=== PATIENT | male | born 2000 | race Caucasian/White ===

== ENCOUNTER 2022-06-27 10:31 | Observation (INO) ==
[2022-06-27] MEDS ORDERED: SODIUM CHLORIDE 0.9% 1000ML 1,000 ML IV ONE (11:12)
[2022-06-27] MEDS ORDERED: ACETAMINOPHEN 1,000 MG/100 ML VIAL IV STA (11:12)
[2022-06-27 11:23] LABS: Basophils # (auto) 0.03 K/uL (0-0.2); Basophils % (auto) 0.2 %; Hematocrit (blood only) 45.6 % (40.1-51.0); Hemoglobin 16.7 g/dl (14.0-18.0); Immature Granulocytes # (auto) 0.06 K/uL (0.00-0.02); Immature Granulocytes % (auto) 0.4 %; Lymphocytes # (auto) 0.99 K/uL (1.2-3.4); Lymphocytes % (auto) 5.9 %; Mean Corpuscular Hemoglobin 31.2 pg (25.0-34.0); Mean Corpuscular Hgb Conc 36.6 g/dL (32.0-36.0); Mean Corpuscular Volume 85.1 fL (80.0-100.0); Mean Platelet Volume 9.8 fL (9.4-12.4); Monocytes # (auto) 1.54 K/uL (0.24-0.82); Monocytes % (auto) 9.2 %; Neutrophils # (auto) 14.08 K/uL (1.4-6.5); Neutrophils % (auto) 84.3 %; Platelet Count 177 K/uL (130-400); RDW Coefficient of Variation 11.3 % (11.5-14.5); RDW Standard Deviation 34.9 fL (36.4-46.3); Red Blood Count 5.36 M/uL (4.63-6.08)
--- NOTE | 2022-06-27 11:37 | Emergency Department Note ---
Impression & Plan Acute appendicitis with localized peritonitis ED Provider Note CHIEF COMPLAINT: Fever, sore throat, abdominal pain HISTORY OF PRESENT ILLNESS: This 22-year-old male patient presents to the [facility] department with complaints of fever, sore throat and abdominal pain. Patient states neck symptoms including the fever began 24 hours ago with abdominal pain beginning today under the ribs and around the umbilicus. Patient states when he pushes on his abdomen however the pain is more in the lower quadrants. He denies a cough, vomiting or diarrhea. He denies any known sick contacts. REVIEW OF SYSTEMS: A review of systems was performed with positives and pertinent negatives listed in the history of present illness. 10 systems were reviewed and are otherwise negative. ALLERGIES: see below MEDICATIONS: see below PMH: see below SOCIAL HISTORY: see below DDx: Viral syndrome, otitis, pharyngitis, pneumonia, influenza, appendicitis, mono, UTI, COVID, bacteremia, as well as other pathologies. PHYSICAL EXAM: Vital signs reviewed. Noted to be mildly tachycardic. Temperatu re repeated at the bedside orally and normal at 37.3. General: Well-appearing 22 yo male, in some discomfort HEENT: No scleral icterus, PERRLA, neck supple. Atraumatic. Cardiovascular: Regular but tachycardic. No extra sounds. Pulmonary: Clear to auscultation bilaterally, normal work of breathing. Abdomen: Soft, mild diffuse abdominal tenderness, no rebound or guarding, nondistended, positive bowel sounds. Musculoskeletal: Atraumatic, no peripheral edema. Neurologic: Patient awake alert and oriented x 3 Skin: Warm, dry, no rash EMERGENCY DEPARTMENT COURSE/MDM: This patient was evaluated and appeared to be in no significant distress. Patient had some mild diffuse abdominal tenderness on my initial exam. IV access was obtained and laboratory work was drawn. Patient is noted to have an elevated WBC. Strep PCR and monotest are negative. CT imaging of the abdomen pelvis was performed and reveals an acute appendicitis. Case was discussed with Dr. Montemayor general surgery who agreed to evaluate the patient for further management. The patient was informed of the findings and plan and agreed. MONITORING: An order for cardiac monitoring was placed and the patient is noted to be in a sinus tachycardia at 112 beats per minute. RADIOLOGY: see below DISPOSITION: Home Past Med/Surg History Medical History Acute appendicitis with localized peritonitis Social History Smoking Status: Never smoker Hx Alcohol Use: Yes Hx Substance Use: No Preferred Language: Yi Communication Ability: Effective Product Safety Lead Required: No Beliefs That Will Affect Care: None Current Living Situation: Other Other Information That Helps Us Care for You: No Feels Safe at Home: Yes Safety Concerns: Feels Safe At This Time Allergies Allergies Allergy/AdvReac Type Severity Reaction Status Date / Time No Known Allergies Allergy Unverified 06/27/22 14:59 Home Meds Home Medications Medication Instructions Recorded Confirmed calcium carbonate 300 mg (750 mg) 0 mg PO BID 06/27/22 06/27/22 chewable tablet (Tums) ibuprofen 200 mg tablet 200 mg PO Q6H PRN Pain 06/27/22 06/27/22 multivitamin 1 tab PO DAILY 06/27/22 06/27/22 Results & Data (ED) Vital Signs Vital Signs - 24 hr 06/27/22 10:43 06/27/22 10:32 06/27/22 11:11 Temperature 37.2 C Temperature Source Temporal Artery Scan Pulse Rate 123 H 107 H Pulse Rate [Apical] 101 H Pulse Rate from SpO2 Sensor Pulse Rhythm Regular Regular Pulse Rhythm [Apical] Regular Pulse Strength Normal Pulse Strength [Apical] Normal Respiratory Rate 20 19 19 Respiratory Effort / Characteristics Non-Labored Spontaneous Non-Labored Respiratory Depth Normal Normal Respiratory Pattern Regular Regular Blood Pressure 130/78 Blood Pressure [Left Arm] 123/67 Blood Pressure Mean 95 Blood Pressure Mean [Left Arm] 85 Blood Pressure Position Sitting Blood Pressure Position [Left Arm] Sitting Pulse Oximetry 97 97 97 Oxygen Delivery Method Room Air Room Air Room Air Sepsis Recent Fever Within 48 Hours No Sepsis New/Unexplained Change in Mental Status No Sepsis Action Taken by Nursing No Action Required 06/27/22 11:18 06/27/22 11:30 06/27/22 11:30 Temperature Temperature Source Pulse Rate 112 H 112 H Pulse Rate [Apical] Pulse Rate from SpO2 Sensor 110 H 107 H Pulse Rhythm Pulse Rhythm [Apical] Pulse Strength Pulse Strength [Apical] Respiratory Rate 28 H 18 Respiratory Effort / Characteristics Respiratory Depth Respiratory Pattern Blood Pressure 102/75 Blood Pressure [Left Arm] Blood Pressure Mean 84 Blood Pressure Mean [Left Arm] Blood Pressure Position Blood Pressure Position [Left Arm] Pulse Oximetry 98 97 Oxygen Delivery Method Sepsis Recent Fever Within 48 Hours Sepsis New/Unexplained Change in Mental Status Sepsis Action Taken by Nursing 06/27/22 12:00 06/27/22 12:00 06/27/22 13:18 Temperature Temperature Source Pulse Rate 94 H Pulse Rate [Apical] Pulse Rate from SpO2 Sensor 95 H Pulse Rhythm Pulse Rhythm [Apical] Pulse Strength Pulse Strength [Apical] Respiratory Rate 24 Respiratory Effort / Characteristics Respiratory Depth Respiratory Pattern Blood Pressure 116/70 117/74 Blood Pressure [Left Arm] Blood Pressure Mean 85 88 Blood Pressure Mean [Left Arm] Blood Pressure Position Blood Pressure Position [Left Arm] Pulse Oximetry 99 Oxygen Delivery Method Sepsis Recent Fever Within 48 Hours Sepsis New/Unexplained Change in Mental Status Sepsis Action Taken by Nursing 06/27/22 13:18 06/27/22 13:30 06/27/22 13:30 Temperature Temperature Source Pulse Rate 97 H Pulse Rate [Apical] Pulse Rate from SpO2 Sensor 97 H 97 H Pulse Rhythm Pulse Rhythm [Apical] Pulse Strength Pulse Strength [Apical] Respiratory Rate 24 Respiratory Effort / Characteristics Respiratory Depth Respiratory Pattern Blood Pressure 110/65 Blood Pressure [Left Arm] Blood Pressure Mean 80 Blood Pressure Mean [Left Arm] Blood Pressure Position Blood Pressure Position [Left Arm] Pulse Oximetry 99 99 Oxygen Delivery Method Sepsis Recent Fever Within 48 Hours Sepsis New/Unexplained Change in Mental Status Sepsis Action Taken by Nursing 06/27/22 14:00 06/27/22 14:00 06/27/22 14:30 Temperature Temperature Source Pulse Rate 105 H Pulse Rate [Apical] Pulse Rate from SpO2 Sensor 104 H Pulse Rhythm Pulse Rhythm [Apical] Pulse Strength Pulse Strength [Apical] Respiratory Rate 22 Respiratory Effort / Characteristics Respiratory Depth Respiratory Pattern Blood Pressure 117/69 110/73 Blood Pressure [Left Arm] Blood Pressure Mean 85 85 Blood Pressure Mean [Left Arm] Blood Pressure Position Blood Pressure Position [Left Arm] Pulse Oximetry 100 Oxygen Delivery Method Sepsis Recent Fever Within 48 Hours Sepsis New/Unexplained Change in Mental Status Sepsis Action Taken by Nursing 06/27/22 14:30 06/27/22 15:27 Temperature Temperature Source Pulse Rate 90 Pulse Rate [Apical] Pulse Rate from SpO2 Sensor 90 Pulse Rhythm Pulse Rhythm [Apical] Pulse Strength Pulse Strength [Apical] Respiratory Rate 17 Respiratory Effort / Characteristics Respiratory Depth Respiratory Pattern Blood Pressure Blood Pressure [Left Arm] Blood Pressure Mean Blood Pressure Mean [Left Arm] Blood Pressure Position Blood Pressure Position [Left Arm] Pulse Oximetry 97 Oxygen Delivery Method Room Air Sepsis Recent Fever Within 48 Hours Sepsis New/Unexplained Change in Mental Status Sepsis Action Taken by Care Home Medications Current Medication List: was personally reviewed by me Laboratory Data Attestation: I reviewed the patient's lab results. Result diagrams: 06/27/22 11:07 06/27/22 11:07 Lab Results 06/27/22 06/27/22 06/27/22 Range/Units 11:02 11:07 11:07 WBC 16.70 H (4.8-10.8) K/ul RBC 5.36 (4.63-6.08) M/uL Hgb 16.7 (14.0-18.0) g/dl Hct 45.6 (40.1-51.0) % MCV 85.1 (80.0-100.0) fL MCH 31.2 (25.0-34.0) pg MCHC 36.6 H (32.0-36.0) g/dL RDW Std Deviation 34.9 L (36.4-46.3) fL RDW Coeff of Tony 11.3 L (11.5-14.5) % Plt Count 177 (130-400) K/uL MPV 9.8 (9.4-12.4) fL Immature Gran % (Auto) 0.4 % Neut % (Auto) 84.3 % Lymph % (Auto) 5.9 % [place] % (Auto) 9.2 % Eos % (Auto) 0.0 % Baso % (Auto) 0.2 % Neut # (Auto) 14.08 H (1.4-6.5) K/uL Lymph # (Auto) 0.99 L (1.2-3.4) K/uL [place] # (Auto) 1.54 H (0.24-0.82) K/uL Eos # (Auto) 0.00 (0-0.50) K/uL Baso # (Auto) 0.03 (0-0.2) K/uL Immature Gran # (Auto) 0.06 H (0.00-0.02) K/uL Sodium 136 (136-145) mmol/L Potassium 4.1 (3.5-5.1) mmol/L Chloride 99 (98-107) mmol/L Carbon Dioxide 29 (21-32) mmol/L Anion Gap 8 (3-11) BUN 16 (6-23) mg/dl Creatinine 0.84 (0.6-1.4) mg/dl Est Cr Clr Drug Dosing 148.2 ml/min Est GFR ( Amer) 145.1 ml/min Est GFR (Non-Af Amer) 125.2 ml/min BUN/Creatinine Ratio 19.0 (10-20) Glucose 118 H (70-99(Fasting)) mg/dl Calcium 10.0 (8.5-10.1) mg/dl Total Bilirubin 0.6 (0.2-1.0) mg/dl AST 23 (13-39) U/L ALT 21 (7-52) U/L Alkaline Phosphatase 91 (34-104) U/L Total Protein 8.0 (6.0-8.3) gm/dl Albumin 4.7 (3.4-5.0) gm/dl Globulin 3.3 (2.5-4.0) gm/dl Albumin/Globulin Ratio 1.4 (0.9-2) Lipase 19 (11-82) U/L Urine Color Yellow Urine Appearance Clear (Clear) Urine pH 6.5 (4.5-7.5) Ur Specific [place] 1.010 (1.000-1.030) Urine Protein Negative (Negative) Urine Glucose (UA) Negative (Negative) Urine Ketones Negative (Negative) Urine Blood Negative (Negative) Urine Nitrite Negative (Negative) Urine Bilirubin Negative (Negative) Urine Urobilinogen Negative (Negative) Ur Leukocyte Esterase Negative (Negative) SARS-CoV-2 (PCR) (Negative) Monoscreen (Negative) Influenza Type A (PCR) (Neg) Influenza Type B (PCR) (Neg) RSV (RT-PCR) (Neg) Group A Strep (PCR) (NotDetected) 06/27/22 06/27/22 06/27/22 Range/Units 11:07 11:31 11:31 WBC (4.8-10.8) K/ul RBC (4.63-6.08) M/uL Hgb (14.0-18.0) g/dl Hct (40.1-51.0) % MCV (80.0-100.0) fL MCH (25.0-34.0) pg MCHC (32.0-36.0) g/dL RDW Std Deviation (36.4-46.3) fL RDW Coeff of Tony (11.5-14.5) % Plt Count (130-400) K/uL MPV (9.4-12.4) fL Immature Gran % (Auto) % Neut % (Auto) % Lymph % (Auto) % [place] % (Auto) % Eos % (Auto) % Baso % (Auto) % Neut # (Auto) (1.4-6.5) K/uL Lymph # (Auto) (1.2-3.4) K/uL [place] # (Auto) (0.24-0.82) K/uL Eos # (Auto) (0-0.50) K/uL Baso # (Auto) (0-0.2) K/uL Immature Gran # (Auto) (0.00-0.02) K/uL Sodium (136-145) mmol/L Potassium (3.5-5.1) mmol/L Chloride (98-107) mmol/L Carbon Dioxide (21-32) mmol/L Anion Gap (3-11) BUN (6-23) mg/dl Creatinine (0.6-1.4) mg/dl Est Cr Clr Drug Dosing ml/min Est GFR ( Amer) ml/min Est GFR (Non-Af Amer) ml/min BUN/Creatinine Ratio (10-20) Glucose (70-99(Fasting)) mg/dl Calcium (8.5-10.1) mg/dl Total Bilirubin (0.2-1.0) mg/dl AST (13-39) U/L ALT (7-52) U/L Alkaline Phosphatase (34-104) U/L Total Protein (6.0-8.3) gm/dl Albumin (3.4-5.0) gm/dl Globulin (2.5-4.0) gm/dl Albumin/Globulin Ratio (0.9-2) Lipase (11-82) U/L Urine Color Urine Appearance (Clear) Urine pH (4.5-7.5) Ur Specific [place] (1.000-1.030) Urine Protein (Negative) Urine Glucose (UA) (Negative) Urine Ketones (Negative) Urine Blood (Negative) Urine Nitrite (Negative) Urine Bilirubin (Negative) Urine Urobilinogen (Negative) Ur Leukocyte Esterase (Negative) SARS-CoV-2 (PCR) NEGATIVE (Negative) Monoscreen Negative (Negative) Influenza Type A (PCR) Negative (Neg) Influenza Type B (PCR) Negative (Neg) RSV (RT-PCR) Negative (Neg) Group A Strep (PCR) NOT DETECTED (NotDetected) Administered Medications Sodium Chloride (Nss 1000ml) 1,000 mls @ 100 mls/hr IV .Q10H KAMALA Stop: 07/27/22 12:59 Last Admin: 06/27/22 18:25 Dose: 100 mls/hr Documented By: Infusion: 06/27/22 18:25 Dose: 100 mls/hr Documented By: Infusion: 06/27/22 13:37 Dose: 100 mls/hr Documented By: Admin: 06/27/22 13:28 Dose: 100 mls/hr Documented By: KAJAL Cefoxitin Sodium 2,000 mg/ (Dextrose) 60 mls @ 100 mls/hr IV Q6H KAMALA Stop: 07/07/22 18:29 Last Admin: 06/27/22 18:39 Dose: 100 mls/hr Documented By: MIRIAN Ondansetron HCl (Ondansetron Inj 2 Mg/Ml 2 Ml Vial) 4 mg IV Q6H PRN PRN Reason: Nausea And Vomiting Stop: 07/27/22 17:44 Last Admin: 06/27/22 18:25 Dose: 4 mg Documented By: MIRIAN Discontinued Medications Bupivacaine HCl/Epinephrine Bitart (Bupivacaine/Epinephrine 0.5% Mpf 1:200,000 30 Ml Vial) Confirm Administered Dose 30 ml .ROUTE .STK-MED ONE Stop: 06/27/22 16:08 Last Admin: 06/27/22 18:30 Dose: Not Given Documented By: MIRIAN Sodium Chloride (Nss 1000ml) 1,000 mls @ 999 mls/hr IV .Q1H1M ONE Stop: 06/27/22 12:12 Last Infusion: 06/27/22 13:44 Dose: 0 mls/hr Documented By: Admin: 06/27/22 11:33 Dose: 999 mls/hr Documented By: QGV Acetaminophen (Ofirmev) 1,000 mg in 100 mls @ 400 mls/hr IV NOW STA Stop: 06/27/22 11:26 Last Admin: 06/27/22 11:53 Dose: Not Given Documented By: KAJAL Ioversol (Optiray 350 100ml) 94 ml IV ONCE ONE Stop: 06/27/22 13:11 Last Admin: 06/27/22 13:10 Dose: 94 ml Documented By: KATE(2) Imaging Data Radiologist's Impression: Abdomen/Pelvis CT 06/27/22 11:[address] WITH IV CONTRAST CT DOSE: 346.02 mGy.cm HISTORY: Generalized abdominal pain. Fever. TECHNIQUE: Multiaxial CT images of the abdomen and pelvis were performed following the use of intravenous contrast. A dose lowering technique was utilized adhering to the principles of ALARA. COMPARISON STUDY: None. FINDINGS: The lung bases are clear. No pneumoperitoneum. No pneumatosis. No fractures within the visualized osseous structures. The spleen is is at the upper limits of normal measuring 12 cm in length. No hepatic or splenic masses. The gallbladder, pancreas, adrenal glands, and kidneys are unremarkable. No hydronephrosis. The main portal vein is patent. Normal caliber abdominal aorta. There is a left circumaortic renal vein. No lymphadenopathy identified. There is trace pelvic free fluid. The bladder is decompressed but appears unremarkable. Moderate well-formed stool seen throughout the colon. No dilated loops of bowel to suggest an obstruction. The appendix is not well visualized due to the lack of oral contrast but appears to be located within the right lower quadrant with the tip anterior to the sacrum. The appendix appears to be located on images 293 through 333. The appendix appears to be filled with fluid and mildly distended up to 9 mm. There is mild periappendiceal fat stranding. Therefore, these findings likely represent an acute appendicitis. No perforation or abscess identified at this time. IMPRESSION: The appendix is suboptimally assessed due to the lack of oral contrast but appears to be abnormal as described above. Therefore, these findings likely represent an acute appendicitis. Surgical consultation recommended. ACT 112: Negative or not required by law. Electronically signed by: Lucius Sparks M.D. 06/27/2022 1:23 PM Blood Pressure Blood Pressure Findings: Normal blood pressure Blood Pressure Disposition: did not require urgent referral Discharge Plan Visit Data Chief Complaint: Abdominal Pain Stated Complaint: ABD PAIN ED Provider: Kavya Guan Discharge Problem: Acute appendicitis with localized peritonitis Patient Disposition: Admitted As Inpatient Discharge Instructions Interventions: ED Discharge Assessment Last Done: 06/27/22 15:27 : Acute appendicitis with localized peritonitis Qualifiers: Appendicitis gangrene presence: unspecified whether gangrene present Appendicitis perforation presence: without perforation Appendicitis abscess presence: without abscess Qualified Code(s): K35.30 - Acute appendicitis with localized peritonitis, without perforation or gangrene
[2022-06-27 11:46] LABS: Albumin Globulin Ratio 1.4 (0.9-2); Albumin Level 4.7 gm/dl (3.4-5.0); Bilirubin,Total 0.6 mg/dl (0.2-1.0); Creatinine Clr Calc Pharmacy 148.2 ml/min; Est GFR (African American) 145.1 ml/min; Est GFR (Non-African American) 125.2 ml/min; Globulin 3.3 gm/dl (2.5-4.0); Potassium 4.1 mmol/L (3.5-5.1)
[2022-06-27 11:50] LABS: Appearance Urine Clear (Clear); Bilirubin Urine Negative (Negative); Blood Urine Negative (Negative); Color Urine Yellow; Glucose Urine UA Negative (Negative); Ketones Urine Negative (Negative); Leukocyte Esterase Urine Negative (Negative); Nitrite Urine Negative (Negative); Protein Urine Negative (Negative); Urobilinogen Urine Negative (Negative); pH Urine 6.5 (4.5-7.5)
[2022-06-27 12:51] LABS: Influenza A virus by PCR Negative (Neg); Influenza B virus by PCR Negative (Neg); RSV by PCR Negative (Neg); SARS CoV2 RNA(COVID-19) Ceph NEGATIVE (Negative)
[2022-06-27] MEDS ORDERED: OPTIRAY 350 100ml IV ONE (13:10)
--- NOTE | 2022-06-27 13:25 | CT Scan Report ---
ABDOMEN AND PELVIS CT WITH IV CONTRAST CT DOSE: 346.02 mGy.cm HISTORY: Generalized abdominal pain. Fever. TECHNIQUE: Multiaxial CT images of the abdomen and pelvis were performed following the use of intrave nous contrast. A dose lowering technique was utilized adhering to the principles of ALARA. COMPARISON STUDY: None. FINDINGS: The lung bases are clear. No pneumoperitoneum. No pneumatosis. No fractures within the visu alized osseous structures. The spleen is is at the upper limits of normal measuring 12 cm in length. No hepatic or splenic masses. The gallbladder, pancreas, adrenal glands, and kidneys are unremarkable . No hydronephrosis. The main portal vein is patent. Normal caliber abdominal aorta. There is a left circumaortic renal vein. No lymphadenopathy identified. There is trace pelvic free fluid. The bladder is decompressed but appears unremarkable. Moderate well-formed stool seen throughout the colon. No d ilated loops of bowel to suggest an obstruction. The appendix is not well visualized due to the lack of oral contrast but appears to be located within the right lower quadrant with the tip anterior to t he sacrum. The appendix appears to be located on images 293 through 333. The appendix appears to be f illed with fluid and mildly distended up to 9 mm. There is mild periappendiceal fat stranding. Theref ore, these findings likely represent an acute appendicitis. No perforation or abscess identified at t his time. IMPRESSION: The appendix is suboptimally assessed due to the lack of oral contrast but appears to be abnormal as described above. Therefore, these findings likely represent an acute appendicitis. Surgical consultat ion recommended. ACT 112: Negative or not required by law. Electronically signed by: Lucius Sparks M.D. 06/27/2022 1:23 PM
[2022-06-27] MEDS: SODIUM CHLORIDE 0.9% 1000ML 1,000 ML IV SCH ×2 (13:28→18:25)
--- NOTE | 2022-06-27 15:10 | Anesthesiology Consultation ---
Date of Service June 27, 2022 Assessment & Plan Chart Review Chart Review: Acceptable Risk for Surgery and Patient NOT seen in Pre Admission Testing Consults Requested none ASA [id number] Proposed Anesthesia Anesthesia Type: General History Surgery Operation Date: 06/27/22 16:00 Proposed Procedures p Laparoscopic Appendectomy - Maury Montemayor MD Height/Weight Height: 5 ft 11 in Weight: 84.3 kg Allergies Allergy/AdvReac Type Severity Reaction Status Date / Time No Known Allergies Allergy Unverified 06/27/22 14:59 Medications Home Medications Medication Instructions Recorded Confirmed Last Taken calcium carbonate 300 mg (750 mg) 0 mg PO BID 06/27/22 06/27/22 Unknown chewable tablet (Tums) ibuprofen 200 mg tablet 200 mg PO Q6H PRN Pain 06/27/22 06/27/22 Unknown multivitamin 1 tab PO DAILY 06/27/22 06/27/22 Unknown Active Medications Generic Name Dose Route Start Last Admin Trade Name Freq PRN Reason Stop Dose Admin Sodium Chloride 1,000 mls @ 100 mls/hr 06/27/22 13:00 06/27/22 13:37 Nss 1000ml IV 07/27/22 12:59 100 mls/hr .Q10H KAMALA Infusion Exercise / Class Metabolic Activity 1 > 8 Run/Swim/Ski/Tennis Past Anesthesia History No Hx of Anesthesia Complications and No Family Hx of Anesthesia Complications History of PONV No Hx of PONV and No Hx of Motion Sickness Social History Smoking Status: Never smoker Physical Exam Vital Signs Last Vital Signs Temp 37.2 C 06/27/22 10:43 Pulse 90 06/27/22 14:30 Resp 17 06/27/22 14:30 BP 110/73 06/27/22 14:30 Pulse Ox 97 06/27/22 14:30 O2 Del Method 06/27/22 11:11 Testing Laboratory Results 06/27/22 11:07 06/27/22 11:07 Urine Color Yellow 06/27/22 11:02 Urine Appearance Clear (Clear) 06/27/22 11:02 Urine pH 6.5 (4.5-7.5) 06/27/22 11:02 Ur Specific [place] 1.010 (1.000-1.030) 06/27/22 11:02 Urine Protein Negative (Negative) 06/27/22 11:02 Urine Glucose (UA) Negative (Negative) 06/27/22 11:02 Urine Ketones Negative (Negative) 06/27/22 11:02 Urine Nitrite Negative (Negative) 06/27/22 11:02 Ur Leukocyte Esterase Negative (Negative) 06/27/22 11:02
[2022-06-27] MEDS ORDERED: HYDROmorphone INJ 1 MG/ML SYRINGE IV PRN (15:47)
[2022-06-27] MEDS ORDERED: ONDANSETRON INJ 2 MG/ML 2 ML VIAL IV PRN ×2 (15:47→17:45)
[2022-06-27] MEDS ORDERED: NALOXONE HCL 0.4 MG/1 ML VIAL/CARP IV PRN (15:47)
[2022-06-27] MEDS ORDERED: fentaNYL citrate 100 MCG/2 ML VIAL IV PRN (15:47)
[2022-06-27] MEDS ORDERED: ePHEDrine sulfate 50 MG/ML AMP IV PRN (15:47)
[2022-06-27] MEDS ORDERED: PROMETHAZINE HCL 12.5 MG in SODIUM CHLORIDE 0.9% 50 ML IV PRN (15:47)
[2022-06-27] MEDS ORDERED: ATROPINE SULFATE 0.1 MG/ML 10ML SYR IV PRN (15:47)
[2022-06-27] MEDS ORDERED: FLUMAZENIL 0.1 MG/1 ML 10 ML VIAL IV PRN (15:47)
[2022-06-27] MEDS ORDERED: PROPOFOL IV EMULSION 10 MG/ML 20 ML VIAL IV ONE (15:50)
[2022-06-27] MEDS ORDERED: fentaNYL citrate 100 MCG/2 ML VIAL ONE (15:51)
[2022-06-27] MEDS ORDERED: MIDAZOLAM HCL 1 MG/ML 2ML VIAL ONE (15:52)
--- NOTE | 2022-06-27 15:55 | History & Physical Report ---
Date of Service June 27, 2022 Assessment & Plan (1) Acute appendicitis with localized peritonitis: Plan: IVF IV abx to OR for lap appendectomy Present on Admission?: Yes History of Present Illness Primary Care Provider: NO PCP This 22-year-old male patient presented to ED with complaints of fever, sore throat and abdominal pain. Patient states neck symptoms including the fever began 24 hours ago with abdominal pain beginning today under the ribs and around the umbilicus. Patient states when he pushes on his abdomen however the pain is more in the lower quadrants. He denies a cough, vomiting or diarrhea. He denies any known sick contacts. A CT scan shows acute appendicitis. Allergies Allergy/AdvReac Type Severity Reaction Status Date / Time No Known Allergies Allergy Unverified 06/27/22 14:59 Home Medications Medication Instructions Recorded Confirmed Type calcium carbonate 300 mg (750 mg) 0 mg PO BID 06/27/22 06/27/22 History chewable tablet (Tums) ibuprofen 200 mg tablet 200 mg PO Q6H PRN Pain 06/27/22 06/27/22 History multivitamin 1 tab PO DAILY 06/27/22 06/27/22 History Past Med/Surg History Medical History (Updated 06/27/22 @ 15:56 by Maury Montemayor MD) Acute appendicitis with localized peritonitis Social History Smoking Status: Never smoker Preferred Language: Georgian Feels Safe at Home: Yes Review of Systems + fever and + anorexia; no chills no problem reported no problem reported + cough; no dyspnea no chest pain + abdominal pain and + nausea; no vomiting no dysuria no rash and no lesions no localized weakness and no generalized weakness no behavioral changes Physical Exam Constitutional: WD/WN, vitals as above Eyes: PERRL, conjunctivae normal, anicteric sclerae ENMT: external ear and nose normal, oropharynx normal Neck: normal visual inspection Respiratory: normal respiratory effort, lungs clear to auscultation Cardiovascular: RRR, no murmur, no edema Gastrointestinal (Abdomen): Inspection/Auscultation: abdomen normal to inspection and normal bowel sounds; abdomen not distended Percussion/Palpation: + abdomen tender and abdomen soft; no guarding and abdomen not rigid Musculoskeletal: Head/Neck/Chest: normocephalic and head atraumatic Skin: no rashes, warm and dry Results & Data (MN) Vital Signs (Past 12 Hours) Vital Signs Temp Pulse Pulse Resp BP BP Pulse Ox 06/27/22 15:27 06/27/22 14:30 90 17 97 06/27/22 14:30 110/73 06/27/22 14:00 105 H 22 100 06/27/22 14:00 117/69 06/27/22 13:30 97 H 24 99 06/27/22 13:30 110/65 06/27/22 13:18 99 06/27/22 13:18 117/74 06/27/22 12:00 94 H 24 99 06/27/22 12:00 116/70 06/27/22 11:30 112 H 18 97 06/27/22 11:30 102/75 06/27/22 11:18 112 H 28 H 98 06/27/22 11:11 107 H 19 97 06/27/22 10:32 101 H 19 123/67 97 06/27/22 10:43 37.2 C 123 H 20 130/78 97 O2 Del Method 06/27/22 15:27 Room Air 06/27/22 14:30 06/27/22 14:30 06/27/22 14:00 06/27/22 14:00 06/27/22 13:30 06/27/22 13:30 06/27/22 13:18 06/27/22 13:18 06/27/22 12:00 06/27/22 12:00 06/27/22 11:30 06/27/22 11:30 06/27/22 11:18 06/27/22 11:11 Room Air 06/27/22 10:32 Room Air 06/27/22 10:43 Room Air Diagnostic Findings ABDOMEN AND PELVIS CT WITH IV CONTRAST CT DOSE: 346.02 mGy.cm HISTORY: Generalized abdominal pain. Fever. TECHNIQUE: Multiaxial CT images of the abdomen and pelvis were performed following the use of intravenous contrast. A dose lowering technique was utilized adhering to the principles of ALARA. COMPARISON STUDY: None. FINDINGS: The lung bases are clear. No pneumoperitoneum. No pneumatosis. No fractures within the visualized osseous structures. The spleen is is at the upper limits of normal measuring 12 cm in length. No hepatic or splenic masses. The gallbladder, pancreas, adrenal glands, and kidneys are unremarkable. No hydronephrosis. The main portal vein is patent. Normal caliber abdominal aorta. There is a left circumaortic renal vein. No lymphadenopathy identified. There is trace pelvic free fluid. The bladder is decompressed but appears unremarkable. Moderate well-formed stool seen throughout the colon. No dilated loops of bowel to suggest an obstruction. The appendix is not well visualized due to the lack of oral contrast but appears to be located within the right lower quadrant with the tip anterior to the sacrum. The appendix appears to be located on images 293 through 333. The appendix appears to be filled with fluid and mildly distended up to 9 mm. There is mild periappendiceal fat stranding. Therefore, these findings likely represent an acute appendicitis. No perforation or abscess identified at this time. IMPRESSION: The appendix is suboptimally assessed due to the lack of oral contrast but appears to be abnormal as described above. Therefore, these findings likely represent an acute appendicitis. Surgical consultation recommended.
[2022-06-27] MEDS ORDERED: BUPIVACAINE/EPINEPHRINE 0.5% MPF 1:200,000 30 ML VIAL ONE (16:07)
[2022-06-27] MEDS ORDERED: DEXAMETHASONE SOD INJ 4 MG/ML VIAL ONE (16:22)
[2022-06-27] MEDS ORDERED: CISATRACURIUM BESYLATE IV SOLN 2 MG/ML 10 ML VIAL IV ONE (16:22)
[2022-06-27] MEDS ORDERED: ONDANSETRON INJ 2 MG/ML 2 ML VIAL ONE (16:23)
[2022-06-27] MEDS ORDERED: NEOSTIGMINE METHYLSULFATE 1 MG/ML 10ML VIAL ONE (16:35)
[2022-06-27] MEDS ORDERED: GLYCOPYRROLATE 0.2 MG/ML VIAL ONE (16:35)
--- NOTE | 2022-06-27 16:48 | Post Operative Brief Note ---
Immediate Post Op Note v1 Date of Surgery June 27, 2022 Pre & Post Diagnosis Operation Date: 06/27/22 16:00 Pre-Op Diagnosis: acute appendicitis Post-Op Diagnosis: acute appendicitis I identified the patient and participated in the time-out.: Yes Procedure Operation Date: 06/27/22 16:00 Actual Procedures p Laparoscopic Appendectomy(Not Applicable) - Maury Montemayor MD Surgeon Maury Montemayor MD [employer] none Estimated Blood Loss 3 Findings Consistent with Post-Op Diagnosis
--- NOTE | 2022-06-27 17:30 | Anesthesiology Progress Note ---
Date of Service June 27, 2022 Anesthesia Post Procedure Vital Signs Vital Signs: Temp Pulse Pulse Resp BP BP BP 06/27/22 17:25 37.5 C 79 19 122/64 06/27/22 17:15 82 22 125/67 06/27/22 17:05 85 26 H 136/74 06/27/22 16:58 37.2 C 87 20 134/67 06/27/22 15:27 06/27/22 14:30 90 17 06/27/22 14:30 110/73 06/27/22 14:00 105 H 22 06/27/22 14:00 117/69 06/27/22 13:30 97 H 24 06/27/22 13:30 110/65 06/27/22 13:18 06/27/22 13:18 117/74 06/27/22 12:00 94 H 24 06/27/22 12:00 116/70 06/27/22 11:30 112 H 18 06/27/22 11:30 102/75 06/27/22 11:18 112 H 28 H 06/27/22 11:11 107 H 19 06/27/22 10:32 101 H 19 123/67 06/27/22 10:43 37.2 C 123 H 20 130/78 Pulse Ox O2 Del Method O2 Flow Rate 06/27/22 17:25 95 Room Air 06/27/22 17:15 94 Room Air 06/27/22 17:05 97 Room Air 06/27/22 16:58 100 Oxymask 2 06/27/22 15:27 Room Air 06/27/22 14:30 97 06/27/22 14:30 06/27/22 14:00 100 06/27/22 14:00 06/27/22 13:30 99 06/27/22 13:30 06/27/22 13:18 99 06/27/22 13:18 06/27/22 12:00 99 06/27/22 12:00 06/27/22 11:30 97 06/27/22 11:30 06/27/22 11:18 98 06/27/22 11:11 97 Room Air 06/27/22 10:32 97 Room Air 06/27/22 10:43 97 Room Air Pain Intensity Abdomen: Pain Intensity: 2 Transfer of Care Handoff Completed per policy Notes Mental Status: alert / awake / arousable Patient Amnestic to Procedure: Yes Nausea / Vomiting: adequately controlled Pain: adequately controlled Airway Patency, RR, SpO2: stable & adequate BP & HR: stable & adequate Hydration State: stable & adequate Anesthetic Complications: no major complications apparent
[2022-06-27] MEDS ORDERED: MoRPHine SULFATE 4 MG/ML 1 ML CARP\\VIAL IV PRN (17:45)
[2022-06-27] MEDS ORDERED: oxyCODONE/ACETAMINOPHEN 5mg/325mg TAB PO PRN ×2 (17:45)
[2022-06-27] MEDS ORDERED: MoRPHine SULFATE 2 MG/ML CARP IV PRN (17:45)
[2022-06-27] MEDS ORDERED: ACETAMINOPHEN 325 MG TAB PO PRN (17:45)
[2022-06-27] MEDS ORDERED: IBUPROFEN 600 MG TAB PO PRN (17:45)
[2022-06-27] MEDS: cefOXitin 2,000 MG in DEXTROSE 5% 50 ML IV SCH (18:39)
--- NOTE | 2022-06-27 20:26 | Operative Report (OR) ---
DATE OF SURGERY: 06/27/2022. PREOPERATIVE DIAGNOSIS: Acute appendicitis. POSTOPERATIVE DIAGNOSIS: Acute appendicitis. PROCEDURES PERFORMED: Laparoscopic appendectomy. SURGEON: Maury Montemayor MD COT ASSEMBLER: None. ANESTHESIA: General endotracheal with 0.5% Marcaine with epinephrine local. ESTIMATED BLOOD LOSS: 3 mL. DRAINS: None. COMPLICATIONS: None. SPECIMENS: Appendix to pathology. INDICATIONS: This is a 22-year-old male admitted through the ED with abdominal pain. He underwent a workup, which showed an acute appendicitis. We talked to him in detail and recommended laparoscopic appendectomy. We went over the possible open procedure, postoperative abscess, bleeding and wound p roblems. DESCRIPTION OF PROCEDURE: The patient was taken to the OR and underwent excellent general endotrache al anesthesia. His abdomen was prepped and draped in normal sterile fashion. Transverse supraumbili marshal incision was made. With tension on the abdominal wall, a Veress needle was inserted. Good pneum operitoneum was then achieved to 15 mmHg pressure. A visualized 11 port was then placed. Good diagn ostic lap was performed. Appendix could be seen inflamed and stuck to the right lower quadrant. A 5 suprapubic and a 5 right upper quadrant and a 12 left lower quadrant port were placed in normal fash ion. The patient was placed in head down and rolled to the left. His cecum was identified. This was gras ped with a [place] clamp. The appendix was teased free from the right lower quadrant and the tip was placed on tension. A Harmonic scalpel was then used to take down the mesoappendix with minimal blee ding. A ZAINAB stapler was used to transect the appendix at its base. A second fire was made to cover the small portion, which was left of the part of the appendix. Once the staple line was completed, t he appendix was removed through the left lower quadrant port. The abdomen was then irrigated out wit h 500 mL of saline. There was minimal bleeding. The staple line was intact with no bleeding. No ot her abnormalities were noted. Ports were removed. The pneumoperitoneum was decompressed. 0 Vicryl was used to close the fascial defect in the 11 and 12 ports. Interrupted Vicryl was used to close th e skin. Steri-Strips and benzoin were used to reinforce the incisions. Marcaine 0.5% with epinephri ne local was used to create a local field block. Sterile dressings were then applied. The patient t olerated the procedure without any complication and was sent to postoperative recovery for a period o f observation and will be sent to the floor for his care. Job ID: [id number]
[2022-06-28] MEDS: cefOXitin 2,000 MG in DEXTROSE 5% 50 ML IV SCH ×3 (00:11→11:56)
[2022-06-28] MEDS: SODIUM CHLORIDE 0.9% 1000ML 1,000 ML IV SCH (04:12)
--- NOTE | 2022-06-28 13:49 | Discharge Summary ---
Date of Service June 28, 2022 Admission HPI Per Admitting Provider This 22-year-old male patient presented to ED with complaints of fever, sore throat and abdominal pain. Patient states neck symptoms including the fever began 24 hours ago with abdominal pain beginning today under the ribs and around the umbilicus. Patient states when he pushes on his abdomen however the pain is more in the lower quadrants. He denies a cough, vomiting or diarrhea. He denies any known sick contacts. A CT scan shows acute appendicitis. Principal Diagnosis Acute appendicitis Discharge Exam Constitutional WD/WN, vitals as above no acute distress and not ill appearing Neck normal visual inspection and trachea midline Respiratory normal respiratory effort; no respiratory distress and no labored breathing Gastrointestinal (Abdomen) Inspection/Auscultation: abdomen normal to inspection and + abdominal surgical incision (Covered with clean, dry, intact dressings); abdomen not distended Percussion/Palpation: + abdomen tender (Mild at incision sites) and abdomen soft; no guarding and abdomen not rigid Skin no rashes, warm and dry Psychiatric A+Ox3, euthymic affect Discharge Data Allergies Allergy/AdvReac Type Severity Reaction Status Date / Time No Known Allergies Allergy Unverified 06/27/22 14:59 Procedures Performed Operation Date: 06/27/22 16:00 Actual Procedures p Laparoscopic Appendectomy(Not Applicable) - Maury Montemayor MD Ordered Studies 06/27/22 11:12 CT abd pelvis IV con only Stat Hospital Course (1) Acute appendicitis with localized peritonitis: Patient was taken to the OR for laparoscopic appendectomy by Dr. Montemayor. Patient was found to have acute appendicitis without perforation or abscess. Patient tolerated procedure well and was transferred recovery room and then to medical/surgical floor for postoperative care. Diet was advanced as tolerated, IV fluids, IV and p.o. pain medication as needed for pain, activity as tolerated, SCDs for DVT prophylaxis. Patient was evaluated on postop day #1. Afebrile, vital signs stable. Postop pain minimal and not requiring any pain medication. Tolerating clear liquid diet. Ambulated to bathroom and urinating without difficulty. Patient was discharged home on postop day #1 in stable condition. Total Time Total Time Spent Total Time Spent (In Minutes): 30 minutes Total Time Includes: Examination of the Patient, Discharge Planning and Medication Reconciliation Discharge Plan Discharge Items Patient Disposition: Home - Self-Care Reason For Visit: APPENDICITIS Discharge Diagnosis: acute appendicitis Activity: Per Instructions section Non-emergency contact: Primary Care Provider and Surgeon Call non-emergency contact if: you have any medication questions, your pain is not controlled, your pain is unusual for you, your pain is concerning for you, you have a fever, your temperature is above 101, your wound has increased redness, your wound has increased drainage and your wound pain has increased Follow-up/Referrals: Cristine Loyola PA-C [Physician Harness Repairer] - PCP,NO [Primary Care Provider] - Diet: Regular Addtl Attending Provider Instructions: Post-Surgical ~Discharge Instructions Activity Recommendations: - lifting limitation: (20 pounds for 4 weeks), - exercise/sex/sports limit: (nonstrenuous for 2 weeks), - driving or machine use limit: (none for 1 week or until pain free and no longer taking narcotic pain medication), - Shower/bathe limit: (may shower beginning tonight) Diet: - Resume previous diet SPECIAL CARE INSTRUCTIONS: - May shower tonight. Remove outer dressings and let water run over area and pat dry. - Leave steri strips on for one week and then remove. - Call the surgeon's office with any questions or concerns - - (ex. temperature higher than 101 degrees F, excessive bleeding or pain). MEDICATIONS: - Resume previous medications unless instructed otherwise by your surgeon. - May alternate extra strength Tylenol and Ibuprofen as needed for mild to moderate pain -650 mg Tylenol every 6 hours as needed - Ibuprofen 600 mg every 6 hours as needed (take with food) FOLLOW UP VISIT: - If not already scheduled, please call the office to schedule a one week follow-up appointment. Office number Pending Studies at Discharge: Yes (appendix pathology, will be reviewed at follow-up visit) Stand-Alone Forms: [employer], Work/School Release, Smoking Cessation Medications and DC Order Prescriptions: Continued multivitamin Tablet 1 tab PO DAILY calcium carbonate [Tums] 300 mg (750 mg) Tablet,Chewable 0 mg PO BID ibuprofen 200 mg Tablet 200 mg PO Q6H PRN (Reason: Pain) Discharge Orders: Discharge Order (Routine); Ordered 06/28/22 Ordered By: Cristine Updyke Admission Data Admit Date/Time: 06/27/22 16:51 Attending Provider: Maury Montemayor Admit Provider: Maury Montemayor Primary Care Provider: PCP,NO Other Interventions: Discharge Summary Assessment (RN) Last Done: 06/28/22 13:54
== END 2022-06-28 14:44 | disposition home or self-care (01) ==
LOC: EDBD → ED 10:31 → 3W 15:30 → OR 15:30
DX: K35.80 Unspecified acute appendicitis